=== PATIENT | male | born 1955 | race Caucasian/White ===

== ENCOUNTER → 2017-01-11 | Outpatient (CLI) | payer MEDICARE, OTHER ==
[2017-01-11 13:57] LABS: Blood Urea Nitrogen 14 mg/dL (9-20); Non-African American GFR(MDRD) >60 (>60 ml/min/1.73 sqM)
--- NOTE | 2017-01-11 16:07 | CT ---
EXAMINATION TYPE: CT ChestAbdPelvis w con DATE OF EXAM: 01/11/2017 COMPARISON: 08/23/2013 HISTORY: Abnormal US, previous pulmonary embolism. CT DLP: 2233.90 mGycm CONTRAST: CT scan of the chest, abdomen and pelvis is performed with Oral Contrast and with IV Contrast, patien t injected with 100 mL of Omnipaque 300. CT Chest: LUNGS: The lungs are clear and free of infiltrate or atelectasis. No pulmonary nodule or mass is det ected. No pleural effusion or CT evidence of interstitial lung disease. MEDIASTINUM: Thoracic aorta is of normal caliber. The heart is not enlarged. No evidence for media stinal mass or adenopathy. HILAR STRUCTURES: No evidence for mass. No hilar adenopathy is appreciated. OTHER: No significant abnormality. CONTRAST CT ABDOMEN AND PELVIS FINDINGS: LIVER/GB: The gallbladder surgically absent. No space occupying hepatic lesion. Biliary tree is of no rmal caliber. PANCREAS: No inflammation. No distinct mass. SPLEEN: No splenic enlargement. No lesion seen. ADRENALS: No nodule. No thickening. KIDNEYS/BLADDER: No hydronephrosis. No nephrolithiasis. No disctinct renal mass. BOWEL: Gastric wall thickening. Correlate clinically and consider direct visualization if felt to be indicated. Normal appendix visualized. Normal bowel caliber. No inflammation. GENITAL ORGANS: No gross abnormality. LYMPH NODES: No greater than 1cm abdominal or pelvic lymph nodes are appreciated. AORTA: No significant abnormality. OSSEOUS STRUCTURES: Severe degenerative change throughout the spine. OTHER: Fat-containing right ingu inal hernia. IMPRESSION: 1. Gastric wall thickening. Correlate clinically and consider direct visualization if felt to be archie cated. 2. Fat-containing right inguinal hernia.
== END | disposition home or self-care (01) ==
LOC: RADCTMAIN 13:30
PROVIDERS: ATTEND Family Medicine
DX: K40.90 Unilateral inguinal hernia, without obstruction or gangrene, not specified as recurrent (principal); K31.89 Other diseases of stomach and duodenum; I26.99 Other pulmonary embolism without acute cor pulmonale
CPT/HCPCS: 82565; 84520; 71260; 74177; 36415; Q9967

== ENCOUNTER 2017-02-22 10:50 | Day surgery (SDC) | payer MEDICARE, OTHER ==
[2017-02-20 12:47] VITALS: BMI 31.1
[~2017-02-22 10:50] MED LIST: DEXAMETHASONE SOD PHOSPHATE 10 MG/ML 1 ML VIAL IV ONE; HEPARIN SODIUM,PORCINE 5,000 UNIT/ML 1 ML VIAL SQ ONE; LIDOCAINE 1% 20 ML VIAL (10MG/ML) FOR IV START INTRADERMA PRN; MIDAZOLAM 2 MG/2 ML VIAL IV PRN; ONDANSETRON 4 MG/2 ML VIAL IVP ONE; SCOPOLAMINE 1.5MG/72HR PATCH TRANSDERM ONE; ceFAZolin IN SWFI 2 GM/20 ML SYRINGE IVP ONE
[2017-02-22] MEDS: LACTATED RINGERS 1,000 ML IV SCH ×3 (11:42→18:50)
[2017-02-22 11:48] LABS: Glucose,Whole Blood 85 mg/dL (75-99)
--- NOTE | 2017-02-22 14:12 | P.GSHP ---
History of Present Illness H&P Date: 02/22/17 Chief Complaint: Right inguinal hernia This's is a 61-year-old male presents today for laparoscopic robotic-assisted repair of right inguinal hernia. Patient's complaints of a tender mass in his right groin. He is seen Rex found have a reducible right inguinal hernia. Past Medical History Past Medical History: Diabetes Mellitus, Deep Vein Thrombosis (DVT), Hyperlipidemia, Hypertension, Osteoarthritis (OA), Pulmonary Embolus (PE), Sleep Apnea/CPAP/BIPAP Additional Past Medical History / Comment(s): blood clots 4 in the past for the past 4 years. Pulmonary emboli in July 2009, one foot turns in-occasional falls, unable to read or write-does sign own consents History of Any Multi-Drug Resistant Organisms: None Reported Past Surgical History: Cholecystectomy, Heart Catheterization Additional Past Surgical History / Comment(s): recent EGD 02-14-17 Past Anesthesia/Blood Transfusion Reactions: No Reported Reaction Additional Past Anesthesia/Blood Transfusion Reaction / Comment(s): HAD A BLOOD TRANSFUSION Smoking Status: Current every day smoker - Past Family History Father Family Medical History: Cancer Mother Family Medical History: Cancer Additional Family Medical History / Comment(s): colon Brother(s) Family Medical History: Cancer Additional Family Medical History / Comment(s): colon Medications and Allergies Home Medications Medication Instructions Recorded Confirmed Type Albuterol Sulfate [Proair Hfa] 2 puff INHALATION QID PRN 08/20/13 02/22/17 History Ipratropium/Albuterol Sulfate 1 dose INHALATION DIRECTED PRN 08/20/13 History [Duoneb 0.5 mg-3 mg/3 ml Soln] Omeprazole [PriLOSEC] 20 mg PO HS 08/20/13 02/22/17 History Potassium Chloride [Klor-Con 10] 20 meq PO DAILY 08/20/13 02/22/17 History Simvastatin 40 mg PO HS 08/20/13 02/22/17 History metFORMIN HCL [Glucophage] 500 mg PO BID 08/20/13 02/22/17 History Losartan Potassium [Cozaar] 50 mg PO HS 09/09/13 02/22/17 History DULoxetine HCL [Cymbalta] 60 mg PO DAILY 03/31/15 02/22/17 History Furosemide [Lasix] 40 mg PO DAILY 03/31/15 02/22/17 History Rivaroxaban [Xarelto] 20 mg PO DAILY 02/13/17 02/20/17 History Allergies Allergy/AdvReac Type Severity Reaction Status Date / Time codeine AdvReac Unknown Verified 02/20/17 12:11 Surgical - Exam Vital Signs Temp Pulse Resp BP Pulse Ox 97.7 F 74 18 121/61 95 02/22/17 11:41 02/22/17 11:41 02/22/17 11:41 02/22/17 11:41 02/22/17 11:41 - General well developed, no distress - Eyes PERRL - ENT normal pinna - Neck no masses - Respiratory normal expansion - Cardiovascular Rhythm: regular - Abdomen Abdomen: soft, non tender Hernia: inguinal (Reducible right inguinal hernia) Assessment and Plan Assessment: Right inguinal hernia. We'll perform laparoscopic robotic assistance repair.
[2017-02-22] MEDS ORDERED: fentaNYL (PF) 50 MCG/ML 2 ML AMP ONE (14:28)
[2017-02-22] MEDS ORDERED: PROPOFOL 10 MG/ML 20 ML VIAL IV ONE (14:28)
[2017-02-22] MEDS ORDERED: GLYCOPYRROLATE 0.2 MG/ML 2 ML VIAL ONE (14:28)
[2017-02-22] MEDS ORDERED: SUCCINYLCHOLINE CHLORIDE VIAL 200 MG/10 ML VIAL IV ONE (14:28)
[2017-02-22] MEDS ORDERED: LIDOCAINE 1% INJ 10MG/ML (20 ML MDV) ONE (14:28)
[2017-02-22] MEDS ORDERED: NEOSTIGMINE 1 MG/ML 10 ML VIAL ONE (14:28)
[2017-02-22] MEDS ORDERED: ROCURONIUM BROMIDE 10 MG/ML 10 ML VIAL IV ONE (14:28)
[2017-02-22] MEDS ORDERED: MIDAZOLAM 2 MG/2 ML VIAL ONE (14:28)
[2017-02-22] MEDS ORDERED: BUPIVACAINE (PF) 0.25% 30 ML VIAL SQ ONE (14:54)
[2017-02-22 15:49] VITALS: TEMP 97.1
[2017-02-22] MEDS: HYDROmorphone 0.5 MG/0.5 ML SYRINGE IVP PRN ×2 (15:54→15:57)
[2017-02-22 16:48] VITALS: RESP 20
[2017-02-22 16:54] LABS: Glucose,Whole Blood 107 mg/dL (75-99)
[2017-02-22] MEDS ORDERED: ONDANSETRON 4 MG/2 ML VIAL IVP ONE (18:01)
--- NOTE | 2017-02-22 18:41 | P.OP ---
Date of Procedure: 02/22/17 Preoperative Diagnosis: Right inguinal hernia Postoperative Diagnosis: Right inguinal hernia Procedure(s) Performed: Laparoscopic robotic-assisted repair of right inguinal hernia Anesthesia: NOY Surgeon: Giovanni Truong Estimated Blood Loss (ml): 5 Pathology: none sent Condition: stable Disposition: PACU Description of Procedure: he patient's placed on the operating table in the supine position. The patient received general anesthesia. The patient's abdomen was prepped and draped in usual sterile fashion. The skin was anesthetized 1% local Xylocaine at the incision sites. Using an 11 blade a skin incision was made at the umbilicus. The fascia was grasped with a [place] and then the peritoneal cavity was entered with the Veress needle. Position of the Veress needle was confirmed with a positive drop test. After adequate insufflation a 5 mm trocar was placed into the peritoneal cavity. The Laparoscope was placed the peritoneal cavity. And a robotic 8 mm trocar was placed in the right lateral position and then another 8 mm robotic trochars placed in the left lateral position. The original 5 mm trocar was exchanged for a 12 mm trocar. The patient was placed in reverse Trendelenburg and then the patient was docked to the robot. Next the peritoneum over top of the hernia was incised and then using blunt and sharp dissection and electrocautery the hernia sac was dissected free from the floor of the inguinal canal. The hernia sac was completely reduced into the peritoneal cavity. And then using the Pro electrical controls technician mesh the hernia was repaired. The peritoneum was then sutured with 20V lock suture. The patient was then undocked the robot. The needle was withdrawn from the peritoneal cavity. The umbilical trocar site was closed with 0 Ethibond suture. The skin was closed interrupted 3-0 Monocryl suture. Dermabond dressing was applied. Patient was sent to recovery in stable condition.
[2017-02-22 19:18] VITALS: BP 147/66; PULSE 92
== END 2017-02-22 18:51 | disposition home or self-care (01) ==
LOC: OR 10:50
PROVIDERS: ATTEND Surgery
DX: K40.90 Unilateral inguinal hernia, without obstruction or gangrene, not specified as recurrent (principal); E11.9 Type 2 diabetes mellitus without complications; E78.5 Hyperlipidemia, unspecified; I10 Essential (primary) hypertension; M19.90 Unspecified osteoarthritis, unspecified site; J44.9 Chronic obstructive pulmonary disease, unspecified; K21.9 Gastro-esophageal reflux disease without esophagitis; G47.30 Sleep apnea, unspecified; F17.200 Nicotine dependence, unspecified, uncomplicated; Z88.5 Allergy status to narcotic agent; Z79.84 Long term (current) use of oral hypoglycemic drugs; Z79.01 Long term (current) use of anticoagulants; Z79.899 Other long term (current) drug therapy; Z86.711 Personal history of pulmonary embolism; Z86.718 Personal history of other venous thrombosis and embolism; Z99.89 Dependence on other enabling machines and devices
CPT/HCPCS: 49650; C1781; J2250; J0330; J1644; J1100; J2710; J0690; J2405; J2001; J3010; J2704; J1170

== ENCOUNTER → 2017-07-10 | Outpatient (CLI) | payer MEDICARE, OTHER ==
--- NOTE | 2017-07-10 15:17 | US ---
EXAMINATION TYPE: US venous doppler duplex LE LT DATE OF EXAM: 07/10/2017 2:47 PM COMPARISON: US bilateral August 12, 2015 CLINICAL HISTORY: I82.402 Acute Embolism And Thrombosis. SIDE PERFORMED: Left TECHNIQUE: The lower extremity deep venous system is examined utilizing real time linear array sonog frandy with graded compression, doppler sonography and color-flow sonography. VESSELS IMAGED: External Iliac Vein (EIV) Common Femoral Vein Deep Femoral Vein Greater Saphenous Vein * Femoral Vein Popliteal Vein Small Saphenous Vein * Proximal Calf Veins (* superficial vessels) Left Leg: No evidence of DVT Grayscale, color doppler, spectral doppler imaging performed of the deep veins of the left lower extr emity. There is normal flow, compressibility, vascular waveforms. IMPRESSION: No ultrasound evidence for acute DVT in the left lower extremity currently.
== END | disposition home or self-care (01) ==
LOC: RADUSWWP 13:54
PROVIDERS: ATTEND Family Medicine
DX: I82.402 Acute embolism and thrombosis of unspecified deep veins of left lower extremity (principal)

== ENCOUNTER 2017-11-09 08:13 | Day surgery (SDC) | payer MEDICARE, OTHER ==
[2017-11-02 14:18] VITALS: BMI 33.9
[~2017-11-09 08:13] MED LIST changes: +LACTATED RINGERS 1,000 ML IV SCH; -LIDOCAINE 1% 20 ML VIAL (10MG/ML) FOR IV START INTRADERMA PRN; +Pre Op ABX Message 1 EACH MISC MISCELLANE ONE; -ceFAZolin IN SWFI 2 GM/20 ML SYRINGE IVP ONE; +fentaNYL (PF) 50 MCG/ML 2 ML AMP IV PRN
[2017-11-09 09:38] LABS: Glucose,Whole Blood 90 mg/dL (75-99)
--- NOTE | 2017-11-09 09:55 | P.GSHP ---
History of Present Illness H&P Date: 11/09/17 Chief Complaint: Posterior scalp lesion The cystic to 2-year-old male who presents today for excision of a posterior scalp cyst. Patient has developed increasing size of the scalp cyst. He currently measures approximately 3 cm diameter. Past Medical History Past Medical History: Diabetes Mellitus, Deep Vein Thrombosis (DVT), Hyperlipidemia, Hypertension, Osteoarthritis (OA), Pulmonary Embolus (PE), Sleep Apnea/CPAP/BIPAP Additional Past Medical History / Comment(s): BLOOD CLOTS X4LRL; PE 2009 ;. ONE FOOT TURNS IN - HX OF OCCASIONAL FALLS- USES CANE ., UNABLE TO READ OR WRITE., COLOR BLIND., LIVES ALONE, ABLE TO SIGN OWN CONSENTS PER FAMILY. History of Any Multi-Drug Resistant Organisms: None Reported Past Surgical History: Cholecystectomy, Heart Catheterization Additional Past Surgical History / Comment(s): HEART CATH 2008. Past Anesthesia/Blood Transfusion Reactions: No Reported Reaction, Motion Sickness Additional Past Anesthesia/Blood Transfusion Reaction / Comment(s): HAD A BLOOD TRANSFUSION Smoking Status: Current every day smoker - Past Family History Father Family Medical History: Cancer Mother Family Medical History: Cancer Additional Family Medical History / Comment(s): colon Brother(s) Family Medical History: Cancer Additional Family Medical History / Comment(s): colon Medications and Allergies Home Medications Medication Instructions Recorded Confirmed Type Albuterol Sulfate [Proair Hfa] 2 puff INHALATION QID PRN 08/20/13 11/09/17 History Ipratropium/Albuterol Sulfate 1 dose INHALATION DIRECTED PRN 08/20/13 History [Duoneb 0.5 mg-3 mg/3 ml Soln] Omeprazole [PriLOSEC] 20 mg PO HS 08/20/13 11/09/17 History Potassium Chloride [Klor-Con 10] 20 meq PO DAILY 08/20/13 11/09/17 History Simvastatin 40 mg PO HS 08/20/13 11/09/17 History metFORMIN HCL [Glucophage] 500 mg PO BID 08/20/13 11/09/17 History Losartan Potassium [Cozaar] 50 mg PO HS 09/09/13 11/09/17 History DULoxetine HCL [Cymbalta] 60 mg PO DAILY 03/31/15 11/09/17 History Furosemide [Lasix] 40 mg PO DAILY 03/31/15 11/09/17 History Rivaroxaban [Xarelto] 20 mg PO DAILY 02/13/17 11/09/17 History Docusate [Colace] 100 mg PO BID PRN 11/02/17 11/09/17 History Allergies Allergy/AdvReac Type Severity Reaction Status Date / Time codeine Allergy Dyspnea Verified 11/09/17 09:25 Surgical - Exam Vital Signs Temp Pulse Resp BP Pulse Ox 97.3 F L 84 18 109/67 95 11/09/17 09:24 11/09/17 09:24 11/09/17 09:24 11/09/17 09:24 11/09/17 09:24 - General well developed, no distress - Eyes PERRL - ENT normal pinna - Neck no masses - Respiratory normal expansion - Cardiovascular Rhythm: regular - Abdomen Abdomen: soft, non tender - Integumentary Posterior scalp cyst. We'll perform excision.
[2017-11-09] MEDS ORDERED: MIDAZOLAM 2 MG/2 ML VIAL ONE (10:22)
[2017-11-09] MEDS ORDERED: fentaNYL (PF) 50 MCG/ML 2 ML AMP ONE (10:22)
[2017-11-09] MEDS ORDERED: PROPOFOL 10 MG/ML 20 ML VIAL IV ONE (10:22)
[2017-11-09] MEDS ORDERED: LIDOCAINE 1% INJ 10MG/ML (20 ML MDV) ONE (10:22)
[2017-11-09] MEDS ORDERED: BUPIVACAIN-EPI 0.25%-1:200,000 30 ML VIAL SQ ONE ×2 (10:35)
[2017-11-09] MEDS ORDERED: SODIUM CHLORIDE 0.9% 50 ML with ceFAZolin 2,000 MG IV ONE ×2 (10:36)
--- NOTE | 2017-11-09 11:07 | P.OP ---
Date of Procedure: 11/09/17 Preoperative Diagnosis: Posterior neck cyst Postoperative Diagnosis: Posterior neck lipoma Procedure(s) Performed: Excision of posterior neck cyst Anesthesia: MAC Surgeon: Giovanni Truong Estimated Blood Loss (ml): 4 Pathology: other (Posterior neck cyst) Condition: stable Disposition: PACU Description of Procedure: Patient's placed on the operating table in the lateral position. He received IV sedation. His neck was prepped and draped in the usual sterile fashion. The skin was anesthetized with 1% local Xylocaine. A elliptical skin incision was made around the neck cyst. Using left cautery and sharp dissection the mass was excised. The mass measured approximately 2 cm in diameter. The Bovie hemostasis. The skin was closed interrupted 3-0 Monocryl suture. Dermabond was applied. Patient top she will was sent to recovery room stable condition.
[2017-11-09 11:11] VITALS: TEMP 97
[2017-11-09 11:16] LABS: Glucose,Whole Blood 103 mg/dL (75-99)
[2017-11-09 11:17] VITALS: RESP 16
[2017-11-09 12:07] VITALS: BP 109/69; PULSE 82
== END 2017-11-09 12:25 | disposition home or self-care (01) ==
LOC: OR 08:13
PROVIDERS: ATTEND Surgery
DX: L72.12 Trichodermal cyst (principal); E11.9 Type 2 diabetes mellitus without complications; Z86.718 Personal history of other venous thrombosis and embolism; E78.5 Hyperlipidemia, unspecified; I10 Essential (primary) hypertension; M19.90 Unspecified osteoarthritis, unspecified site; Z86.711 Personal history of pulmonary embolism; G47.30 Sleep apnea, unspecified; Z99.89 Dependence on other enabling machines and devices; F17.200 Nicotine dependence, unspecified, uncomplicated; Z79.01 Long term (current) use of anticoagulants; Z79.84 Long term (current) use of oral hypoglycemic drugs; Z79.899 Other long term (current) drug therapy; Z88.5 Allergy status to narcotic agent
CPT/HCPCS: 88305; 11422; J2250; J1644; J1100; J2405; J2001; J3010; J0690; J2704

== ENCOUNTER 2017-12-13 07:17 | Day surgery (SDC) | payer MEDICARE, OTHER ==
[2017-12-11 09:18] VITALS: BMI 33.9
[~2017-12-13 07:17] MED LIST changes: -DEXAMETHASONE SOD PHOSPHATE 10 MG/ML 1 ML VIAL IV ONE; -MIDAZOLAM 2 MG/2 ML VIAL IV PRN; -ONDANSETRON 4 MG/2 ML VIAL IVP ONE; -SCOPOLAMINE 1.5MG/72HR PATCH TRANSDERM ONE; -fentaNYL (PF) 50 MCG/ML 2 ML AMP IV PRN
[2017-12-13 08:22] LABS: Glucose,Whole Blood 99 mg/dL (75-99)
--- NOTE | 2017-12-13 08:59 | P.GSHP ---
History of Present Illness H&P Date: 12/13/17 Chief Complaint: Atypical skin lesion This is a 62-year-old male who underwent excision of a posterior scalp skin cyst. Patient found have atypia on the pathology report. Patient safe for reexcision of the lesion. Past Medical History Past Medical History: Diabetes Mellitus, Deep Vein Thrombosis (DVT), Hyperlipidemia, Hypertension, Osteoarthritis (OA), Pulmonary Embolus (PE), Sleep Apnea/CPAP/BIPAP Additional Past Medical History / Comment(s): BLOOD CLOTS X4LRL; PE 2009 ;. ONE FOOT TURNS IN - HX OF OCCASIONAL FALLS- USES CANE ., UNABLE TO READ OR WRITE., COLOR BLIND., LIVES ALONE, ABLE TO SIGN OWN CONSENTS PER FAMILY. History of Any Multi-Drug Resistant Organisms: None Reported Past Surgical History: Cholecystectomy, Heart Catheterization Additional Past Surgical History / Comment(s): HEART CATH 2008. SKIN LESION REMOVED FROM SCALP Past Anesthesia/Blood Transfusion Reactions: No Reported Reaction, Motion Sickness Additional Past Anesthesia/Blood Transfusion Reaction / Comment(s): HAD A BLOOD TRANSFUSION Past Psychological History: No Psychological Hx Reported Additional Psychological History / Comment(s): hard time reading Smoking Status: Current every day smoker Past Alcohol Use History: None Reported Additional Past Alcohol Use History / Comment(s): started smoking age 21's, smokes less than 1/2 PPD Past Drug Use History: None Reported - Past Family History Father Family Medical History: Cancer Mother Family Medical History: Cancer Additional Family Medical History / Comment(s): colon Brother(s) Family Medical History: Cancer Additional Family Medical History / Comment(s): colon Medications and Allergies Home Medications Medication Instructions Recorded Confirmed Type Albuterol Sulfate [Proair Hfa] 2 puff INHALATION QID PRN 08/20/13 12/13/17 History Ipratropium/Albuterol Sulfate 1 dose INHALATION DIRECTED PRN 08/20/13 History [Duoneb 0.5 mg-3 mg/3 ml Soln] Omeprazole [PriLOSEC] 20 mg PO HS 08/20/13 12/13/17 History Potassium Chloride [Klor-Con 10] 20 meq PO DAILY 08/20/13 12/13/17 History Simvastatin 40 mg PO HS 08/20/13 12/13/17 History metFORMIN HCL [Glucophage] 500 mg PO BID 08/20/13 12/13/17 History Losartan Potassium [Cozaar] 50 mg PO HS 09/09/13 12/13/17 History DULoxetine HCL [Cymbalta] 60 mg PO DAILY 03/31/15 12/13/17 History Furosemide [Lasix] 40 mg PO DAILY 03/31/15 12/13/17 History Rivaroxaban [Xarelto] 20 mg PO DAILY 02/13/17 12/11/17 History Docusate [Colace] 100 mg PO BID PRN 11/02/17 12/11/17 History Allergies Allergy/AdvReac Type Severity Reaction Status Date / Time codeine Allergy Dyspnea Verified 12/13/17 08:08 Surgical - Exam Vital Signs Temp Pulse Resp BP Pulse Ox 97.8 F 88 17 133/63 93 L 12/13/17 08:15 12/13/17 08:15 12/13/17 08:15 12/13/17 08:15 12/13/17 08:15 - General well developed, no distress - Eyes PERRL - ENT normal pinna - Neck no masses - Respiratory normal expansion - Cardiovascular Rhythm: regular - Abdomen Abdomen: soft, non tender - Integumentary Healed skin excision site measuring centimeters length. Assessment and Plan Assessment: History of excision of skin cyst. Patient has atypia noted on pathology. Patient will undergo reexcision of the skin cyst.
[2017-12-13] MEDS ORDERED: PROPOFOL 10 MG/ML 20 ML VIAL IV ONE (09:16)
[2017-12-13] MEDS ORDERED: KETAMINE 10 MG/ML 20 ML VIAL ONE (09:16)
[2017-12-13] MEDS ORDERED: fentaNYL (PF) 50 MCG/ML 2 ML AMP ONE (09:16)
[2017-12-13] MEDS ORDERED: MIDAZOLAM 2 MG/2 ML VIAL ONE (09:16)
[2017-12-13] MEDS ORDERED: BUPIVACAIN-EPI 0.5%-1:200,000 30 ML VIAL SQ ONE ×2 (09:38)
[2017-12-13 10:15] VITALS: TEMP 97.2
[2017-12-13] MEDS: MORPHINE SULFATE 4 MG/ML SYRINGE IV PRN ×2 (10:15→10:46)
[2017-12-13 10:52] VITALS: RESP 18
[2017-12-13 10:57] LABS: Glucose,Whole Blood 101 mg/dL (75-99)
[2017-12-13 11:47] VITALS: BP 146/79; PULSE 85
--- NOTE | 2018-01-05 09:54 | P.OP ---
Date of Procedure: 12/13/17 Preoperative Diagnosis: Posterior scalp atypical skin lesion Postoperative Diagnosis: Posterior scalp atypical skin lesion Procedure(s) Performed: Excision of posterior scalp atypical skin lesion Anesthesia: MAC Surgeon: Giovanni Truong Estimated Blood Loss (ml): 10 Pathology: other (Posterior scalp skin lesion) Condition: stable Description of Procedure: Patient's placed on the operative table in the lateral position. He received IV sedation. The area of the skin lesion was visualized. Elliptical skin incision was made around his previous scar. Using electrocautery the specimen was removed. The lesion measured 4 x 1 cm. The wound was closed with interrupted 3-0 Monocryl suture. Dermabond was applied. Patient top she will was sent to recovery room stable condition.
== END 2017-12-13 12:11 | disposition home or self-care (01) ==
LOC: OR 07:17
PROVIDERS: ATTEND Surgery
DX: L90.5 Scar conditions and fibrosis of skin (principal); E11.9 Type 2 diabetes mellitus without complications; Z86.718 Personal history of other venous thrombosis and embolism; E78.5 Hyperlipidemia, unspecified; I10 Essential (primary) hypertension; K21.9 Gastro-esophageal reflux disease without esophagitis; M19.90 Unspecified osteoarthritis, unspecified site; Z86.711 Personal history of pulmonary embolism; J45.909 Unspecified asthma, uncomplicated; G47.30 Sleep apnea, unspecified; Z99.89 Dependence on other enabling machines and devices; F17.210 Nicotine dependence, cigarettes, uncomplicated; Z79.01 Long term (current) use of anticoagulants; Z79.84 Long term (current) use of oral hypoglycemic drugs; Z79.899 Other long term (current) drug therapy; Z88.5 Allergy status to narcotic agent
CPT/HCPCS: 88305; 11426; J2250; J2270; J1644; J3010; J2704

== ENCOUNTER 2017-12-27 06:23 | Day surgery (SDC) | payer MEDICARE, OTHER ==
[2017-12-26 09:36] VITALS: BMI 35.9
[~2017-12-27 06:23] MED LIST changes: -HEPARIN SODIUM,PORCINE 5,000 UNIT/ML 1 ML VIAL SQ ONE; +LIDOCAINE 1% 20 ML VIAL (10MG/ML) FOR IV START INTRADERMA PRN; -Pre Op ABX Message 1 EACH MISC MISCELLANE ONE
[2017-12-27 07:16] VITALS: TEMP 97.8
[2017-12-27 07:28] LABS: Glucose,Whole Blood 123 mg/dL (75-99)
[2017-12-27] MEDS ORDERED: PROPOFOL 10 MG/ML 20 ML VIAL IV ONE (07:47)
[2017-12-27] MEDS ORDERED: LIDOCAINE 1% INJ 10MG/ML (20 ML MDV) ONE (07:47)
--- NOTE | 2017-12-27 08:05 | P.GSHP ---
History of Present Illness H&P Date: 12/27/17 Chief Complaint: GI bleed this a 62-year-old male referred from Dr. virgen. Patient points of rectal bleeding. He presents today for colonoscopy. Past Medical History Past Medical History: Diabetes Mellitus, Deep Vein Thrombosis (DVT), Hyperlipidemia, Hypertension, Osteoarthritis (OA), Pulmonary Embolus (PE), Sleep Apnea/CPAP/BIPAP Additional Past Medical History / Comment(s): BLOOD CLOTS X4LRL; PE 2009 ;. ONE FOOT TURNS IN - HX OF OCCASIONAL FALLS- USES CANE ., UNABLE TO READ OR WRITE., COLOR BLIND., LIVES ALONE, ABLE TO SIGN OWN CONSENTS PER FAMILY. History of Any Multi-Drug Resistant Organisms: None Reported Past Surgical History: Cholecystectomy, Heart Catheterization Additional Past Surgical History / Comment(s): HEART CATH 2008. SKIN LESION REMOVED FROM SCALP Past Anesthesia/Blood Transfusion Reactions: No Reported Reaction, Motion Sickness Additional Past Anesthesia/Blood Transfusion Reaction / Comment(s): HAD A BLOOD TRANSFUSION-NO PROBLEMS Smoking Status: Current every day smoker - Past Family History Father Family Medical History: Cancer Mother Family Medical History: Cancer Additional Family Medical History / Comment(s): colon Brother(s) Family Medical History: Cancer Additional Family Medical History / Comment(s): colon Medications and Allergies Home Medications Medication Instructions Recorded Confirmed Type Albuterol Sulfate [Proair Hfa] 2 puff INHALATION QID PRN 08/20/13 12/26/17 History Ipratropium/Albuterol Sulfate 1 dose INHALATION DIRECTED PRN 08/20/13 History [Duoneb 0.5 mg-3 mg/3 ml Soln] Omeprazole [PriLOSEC] 20 mg PO HS 08/20/13 12/27/17 History Potassium Chloride [Klor-Con 10] 20 meq PO DAILY 08/20/13 12/27/17 History Simvastatin 40 mg PO HS 08/20/13 12/27/17 History metFORMIN HCL [Glucophage] 500 mg PO BID 08/20/13 12/27/17 History Losartan Potassium [Cozaar] 50 mg PO HS 09/09/13 12/27/17 History DULoxetine HCL [Cymbalta] 60 mg PO DAILY 03/31/15 12/27/17 History Furosemide [Lasix] 40 mg PO DAILY 03/31/15 12/27/17 History Rivaroxaban [Xarelto] 20 mg PO DAILY 02/13/17 12/26/17 History Docusate [Colace] 100 mg PO BID PRN 11/02/17 12/26/17 History Allergies Allergy/AdvReac Type Severity Reaction Status Date / Time codeine Allergy Dyspnea Verified 12/27/17 07:14 Surgical - Exam Vital Signs Temp Pulse Resp BP Pulse Ox 97.8 F 88 17 125/64 95 12/27/17 07:15 12/27/17 07:15 12/27/17 07:15 12/27/17 07:15 12/27/17 07:15 - General well developed, no distress - Eyes PERRL - ENT normal pinna - Neck no masses - Respiratory normal expansion - Cardiovascular Rhythm: regular - Abdomen Abdomen: soft, non tender - Rectum Rectum: normal sphincter tone - Integumentary no rash Results - Labs Abnormal Lab Results - Last 24 Hours (Table) 12/27/17 Range/Units 07:24 POC Glucose (mg/dL) 123 H (75-99) mg/dL Assessment and Plan Assessment: GI bleed
--- NOTE | 2017-12-27 08:21 | P.OP ---
Date of Procedure: 12/27/17 Preoperative Diagnosis: GI bleed Postoperative Diagnosis: diverticulosis Transverse colon polyp Procedure(s) Performed: colonoscopy Anesthesia: MAC Surgeon: Giovanni Truong Pathology: other Condition: stable Disposition: PACU Description of Procedure: the patient's placed on the operative table ilateral position. He received IV sedation. Digital rectal exam was performed which revealed no abnormalities. Flexible colonoscope was then placed patient anus passed rotator colon. The ileocecal valve was visualized. The cecum and ascending colon appeared normal. In the proximal transverse colon there was a peduncular polyp and this was removed snare. Scope was brought back into the descending colon diverticular changes. The sigmoid colon had more diverticula changes. Scope was then brought back the rectum this appeared normal. The patient had no obvious source of bleeding. It was thought that he may have had bleeding from the polyp or the diverticulum.
[2017-12-27 08:24] VITALS: BP 122/74
[2017-12-27 08:31] VITALS: PULSE 86; RESP 16
== END 2017-12-27 08:51 | disposition home or self-care (01) ==
LOC: ORWHC2ENDO 06:23
PROVIDERS: ATTEND Surgery
DX: K92.2 Gastrointestinal hemorrhage, unspecified (principal); D12.3 Benign neoplasm of transverse colon; K57.30 Diverticulosis of large intestine without perforation or abscess without bleeding; E11.9 Type 2 diabetes mellitus without complications; I10 Essential (primary) hypertension; E78.5 Hyperlipidemia, unspecified; M19.90 Unspecified osteoarthritis, unspecified site; G47.30 Sleep apnea, unspecified; F17.210 Nicotine dependence, cigarettes, uncomplicated; G47.33 Obstructive sleep apnea (adult) (pediatric); Z99.89 Dependence on other enabling machines and devices; Z86.711 Personal history of pulmonary embolism; Z86.718 Personal history of other venous thrombosis and embolism; Z91.81 History of falling; Z79.01 Long term (current) use of anticoagulants; Z79.84 Long term (current) use of oral hypoglycemic drugs; Z79.899 Other long term (current) drug therapy; Z88.5 Allergy status to narcotic agent; Z90.49 Acquired absence of other specified parts of digestive tract
CPT/HCPCS: 88305; 45385; J2001; J2704

== ENCOUNTER → 2018-02-12 | Outpatient (CLI) | payer MEDICARE, OTHER ==
--- NOTE | 2018-02-12 15:48 | MR ---
MR left foot HISTORY: Left foot pain, deformity, Q66.9, M 19.072 Multiplanar multisequence imaging obtained through the left foot. Correlation to prior left foot MR 11/05/2015, no plain film supplied for correlation If patient shows unusual configuration, alignment on the images similar to prior exam. T2 hyperintensity within the subcutaneous tissues is compatible with edema. Some fluid signal again n oted along the flexor tendons at the volar aspect of the foot similar to prior exam. No evident bone marrow edema within the forefoot however marrow edema present within the calcaneus with possible geod e formation at the level of the sinus Tarsi could represent geode formation which is progressed sligh tly in the interval. Arthropathy change also present at the level of the calcaneal cuboid joint with subchondral cyst formation, joint space loss, marginal spurring. Small geode present also at the cubo id articulation with the proximal fourth metatarsal with some spurring. Some fluid present at the metatarsophalangeal joint of the first digit and also third fourth and fift h digits. Flexor and extensor tendons are intact. Peroneal longus and brevis tendons are similar in a ppearance, peroneal longus tendon is atrophic as previously described. Achilles tendon is intact. Flu id signal again noted along the posterior tibial tendon as on prior. Some minimal interstitial tear a gain noted in the Achilles tendon peripherally. Ligamentous not well identified due to oblique orient ation on the images. Hindfoot and forefoot varus deformity again noted. No evident fracture or dislocation. Flexion of mul tiple digits is noted, correlate for trigger toe, arthropathy IMPRESSION: Findings appear similar to prior exam. Posterior tibial tendinosis. Partial-thickness atr ophic tear of peroneal longus tendon. Forefoot and hindfoot varus deformity. Osteoarthritic changes a s described. Soft tissue edema and possibly myositis. Minimal interstitial tearing of the Achilles te ndon is stable. Plantar calcaneal spur is stable. Additional findings above.
== END | disposition home or self-care (01) ==
LOC: RADMRIMAIN 12:09
PROVIDERS: ATTEND Family Medicine
DX: S86.312A Strain of muscle(s) and tendon(s) of peroneal muscle group at lower leg level, left leg, initial encounter (principal); S86.012A Strain of left Achilles tendon, initial encounter; M76.822 Posterior tibial tendinitis, left leg; M19.072 Primary osteoarthritis, left ankle and foot; M77.32 Calcaneal spur, left foot; M21.172 Varus deformity, not elsewhere classified, left ankle

== ENCOUNTER → 2018-05-29 | Outpatient (CLI) | payer MEDICARE, OTHER ==
[~2018-05-29] MED LIST changes: -LACTATED RINGERS 1,000 ML IV SCH; -LIDOCAINE 1% 20 ML VIAL (10MG/ML) FOR IV START INTRADERMA PRN; +REGADENOSON 0.4 MG/5 ML SYRINGE IV ONE
--- NOTE | 2018-05-29 09:14 | ECHOF ---
Referral Reason:I10 hypertention/E11.9 DM MEASUREMENTS -------- HEIGHT: 177.8 cm WEIGHT: 120.2 kg BP: IVSd: 1.1 cm (0.6 - 1.1) LVIDd: 4.5 cm (3.9 - 5.3) LVPWd: 1.0 cm (0.6 - 1.1) IVSs: 1.7 cm LVIDs: 2.9 cm LVPWs: 1.7 cm LA Diam: 1.1 cm (2.7 - 3.8) LAESV Index (A-L): 20.12 ml/m Ao Diam: 3.7 cm (2.0 - 3.7) AV Cusp: 2.2 cm (1.5 - 2.6) LA Diam: 3.6 cm (2.7 - 3.8) MV EXCURSION: 21.388 mm (> 18.000) MV EF SLOPE: 152 mm/s (70 - 150) EPSS: 2.4 cm MV E Andrea: 0.36 m/s MV DecT: 147 ms MV A Andrea: 0.82 m/s MV E/A Ratio: 0.44 RAP: 5.00 mmHg RVSP: 15.28 mmHg FINDINGS -------- Sinus rhythm. This was a technically good study. The left ventricular size is normal. Left ventricular wall thickness is normal. Overall left vent ricular systolic function is low-normal with, an EF between 50 - 55 %. The right ventricle is normal in size. Normal LA size by volume 22+/-6 ml/m2. The right atrial size is normal. The aortic valve is trileaflet and appears structurally normal. There is trace mitral regurgitation. Trace tricuspid regurgitation present. The right ventricular systolic pressure, as measured by Dopp ler, is 15.28mmHg. There is no pulmonic regurgitation present. The aortic root size is normal. IVC Not well visulized. There is no pericardial effusion. CONCLUSIONS -------- 1. Sinus rhythm. 2. This was a technically good study. 3. The left ventricular size is normal. 4. Left ventricular wall thickness is normal. 5. Overall left ventricular systolic function is low-normal with, an EF between 50 - 55 %. 6. The right ventricle is normal in size. 7. Normal LA size by volume 22+/-6 ml/m2. 8. The right atrial size is normal. 9. The aortic valve is trileaflet and appears structurally normal. 10. There is trace mitral regurgitation. 11. Trace tricuspid regurgitation present. 12. The right ventricular systolic pressure, as measured by Doppler, is 15.28mmHg. 13. There is no pulmonic regurgitation present. 14. The aortic root size is normal. 15. IVC Not well visulized. 16. There is no pericardial effusion. PRESS MANAGER: Vera Crane RDCS
--- NOTE | 2018-05-29 11:51 | NM ---
EXAMINATION TYPE: NM stress lexiscan cardiolite DATE OF EXAM: 05/29/2018 COMPARISON: NONE HISTORY: Hypertension and diabetes. Chest pain. TECHNIQUE: After the intravenous administration of 9.89 mCi Tc 99m Sestamibi - Cardiolite resting SP ECT images acquired 45 minutes post injection. The patient received 0.4mg Lexiscan, 26.9 mCi Tc 99m Sestamibi - Stress images obtained [address] injection FINDINGS: Review of stress and rest SPECT images demonstrates no distinct perfusion abnormality. Gated analysi s shows normal wall motion with an estimated left ventricular ejection fraction of 57 %. TID is withi n normal limits calculated at 1.08. IMPRESSION: No scintigraphic evidence for reversible ischemia.
--- NOTE | 2018-05-30 14:54 | EST ---
EXERCISE STRESS AGE: 62 SEX: M HT: 6' WT: 265 PROTOCOL: Lexiscan Cardiolite Stress Test HEART RATE REST: 76 BLOOD PRESSURE REST: 121/82 MAXIMUM HEART RATE ACHIEVED: 94 MAXIMUM BLOOD PRESSURE: 125/71 INDICATIONS: Hypertension. CLINICAL INFORMATION: Lexiscan nuclear study was performed. Peak heart rate of 94 was achieved. Maximum blood pressure of 125/71 mmHg was noted. Resting EKG shows normal sinus rhythm with normal WI interval and QRS duration and normal ST-T waves. No ST-segment depression suggestive of ischemia was noted. FINAL IMPRESSION: 1. There is no evidence of any ST-segment depression to suggest ischemia during Lexiscan injection. 2. The results of the nuclear study will follow. MMODL / IJN: [id number] /
== END | disposition home or self-care (01) ==
LOC: RADNMMAIN 08:00
PROVIDERS: ATTEND Family Medicine
DX: I35.9 Nonrheumatic aortic valve disorder, unspecified (principal); I10 Essential (primary) hypertension; E11.9 Type 2 diabetes mellitus without complications; I25.10 Atherosclerotic heart disease of native coronary artery without angina pectoris; Z88.5 Allergy status to narcotic agent
CPT/HCPCS: 93017; 93306; 78452; A9500; J2785

== ENCOUNTER → 2018-10-04 | Outpatient (CLI) | payer MEDICARE, OTHER ==
[2018-10-04 16:01] LABS: African American GFR (CKD) >90 (>60 ml/min/1.73 sqM); Blood Urea Nitrogen 18 mg/dL (9-20)
--- NOTE | 2018-10-05 07:25 | US ---
EXAMINATION TYPE: US venous doppler duplex LE DATE OF EXAM: 10/04/2018 4:26 PM COMPARISON: NONE CLINICAL HISTORY: I82.503 DVT. Hx of DVT patient on blood thinners. SIDE PERFORMED: Bilateral TECHNIQUE: The lower extremity deep venous system is examined utilizing real time linear array sonog frandy with graded compression, doppler sonography and color-flow sonography. VESSELS IMAGED: External Iliac Vein (EIV) Common Femoral Vein Deep Femoral Vein Greater Saphenous Vein * Femoral Vein Popliteal Vein Small Saphenous Vein * Proximal Calf Veins (* superficial vessels) Grayscale, color doppler, spectral doppler imaging performed of the deep veins of the lower extremiti es. There is normal flow, compressibility, vascular waveforms. Right Leg: Negative for DVT Left Leg: Thready flow seen in Femoral Vein. Hx of Chronic DVT left leg. IMPRESSION: 1. Nonocclusive, eccentric, chronic known deep venous thrombosis within the left lower extremity loca lized to the femoral vein. 2. No sonographic evidence of deep venous thrombosis within the right lower extremity.
--- NOTE | 2018-10-05 09:55 | CT ---
EXAMINATION TYPE: CT ChestAbdPelvis w con DATE OF EXAM: 10/04/2018 COMPARISON: Prior CT 01/11/2017 HISTORY: SOB, Hx of PE CT DLP: 2392.5 mGycm Automated exposure control for dose reduction was used. CONTRAST: CT scan of the chest, abdomen and pelvis is performed with Oral Contrast and with IV Contrast, patien t injected with 100 mL of Isovue 300. FINDINGS: LUNGS: The lungs are grossly clear, there is no concerning parenchymal mass or nodule identified. T here is no pleural effusion or pneumothorax seen. The tracheobronchial tree is patent. MEDIASTINUM: There are no greater than 1 cm hilar or mediastinal lymph nodes. No pericardial effusi on is seen. AORTA: No significant abnormality is seen. OTHER: Possible right inguinal hernia, correlate. Narrowed caliber of the iliac vein, common femoral vein on the left is indeterminate. LIVER/GB: Patient is post cholecystectomy. The liver shows low attenuation likely due to hepatic stea tosis. PANCREAS: No significant abnormality is seen. SPLEEN: No significant abnormality is seen. ADRENALS: No significant abnormality is seen. KIDNEYS: Left kidney shows an abnormality at the midpole with some central low attenuation which is i ncreased in size as compared to prior exam and there is suggestion of some local mass effect perhaps better seen on delayed imaging, difficult to exclude a mass measuring 2.4 cm. REPRODUCTIVE ORGANS: No gross abnormality seen. BOWEL: Diverticular changes are present associated with the sigmoid colon. No evident bowel obstruct ion. There is a duodenal diverticulum at the 2nd-3rd portion of the duodenum. The appendix is normal. FREE AIR: No Free Air visible. ASCITES: None seen. RETROPERITONEAL ADENOPATHY: No retroperitoneal adenopathy is seen. LYMPH NODES: No greater than 1 cm abdominal or pelvic lymph nodes are appreciated. URINARY BLADDER: No significant abnormality is seen. PELVIC ADENOPATHY: None visualized. OSSEOUS STRUCTURES: Degenerative disc changes, facet arthropathy noted in the lumbar spine, there is likely lumbar spinal stenosis. IMPRESSION: Abnormal appearance to the mid pole left kidney laterally, difficult to exclude an underl kael mass. Consider urology consult. Hepatic steatosis. Postop changes. Findings in the iliac and com mon femoral vein on the left as described are indeterminate. Diverticulosis.
== END | disposition home or self-care (01) ==
LOC: RADCTMAIN 15:22
PROVIDERS: ATTEND Family Medicine
DX: K76.0 Fatty (change of) liver, not elsewhere classified (principal); K57.30 Diverticulosis of large intestine without perforation or abscess without bleeding; R94.4 Abnormal results of kidney function studies; N40.0 Benign prostatic hyperplasia without lower urinary tract symptoms; Z90.49 Acquired absence of other specified parts of digestive tract; Z88.5 Allergy status to narcotic agent; Z88.8 Allergy status to other drugs, medicaments and biological substances; I82.512 Chronic embolism and thrombosis of left femoral vein
CPT/HCPCS: 82565; 84520; 93970; 71260; 74177; 36415; Q9967

== ENCOUNTER → 2018-10-30 | Outpatient (CLI) | payer MEDICARE, OTHER ==
--- NOTE | 2018-10-30 12:23 | US ---
EXAMINATION TYPE: US carotid duplex BILAT DATE OF EXAM: 10/30/2018 COMPARISON: NONE CLINICAL HISTORY: R42 Dizziness and giddine. HTN, diabetic, No hx TIA, Dizzy, headaches recently EXAM MEASUREMENTS: RIGHT: Peak Systolic Velocity (PSV) cm/sec ----- Right CCA: 81.4 ----- Right ICA: 65.8 ----- Right ECA: 74.6 ICA/CCA ratio: 0.8 RIGHT: End Diastole cm/sec ----- Right CCA: 15.4 ----- Right ICA: 28.5 ----- Right ECA: 0.0 LEFT: Peak Systolic Velocity (PSV) cm/sec ----- Left CCA: 75.4 ----- Left ICA: 66.2 ----- Left ECA: 99.5 ICA/CCA ratio: 0.9 LEFT: End Diastole cm/sec ----- Left CCA: 16.0 ----- Left ICA: 20.9 ----- Left ECA: 0.0 VERTEBRALS (direction of flow): Right Vertebral: Antegrade Left Vertebral: Antegrade Rhythm: Arrhythmia No elevated velocities, significant stenosis, plaque or wall thickening. IMPRESSION: 1. Mild degree of grayscale atheromatous plaquing with no sonographically evident hemodynamically sig nificant stenosis within either visualized carotid arterial system. 2. Incidentally noted cardiac arrhythmia. Correlate with EKG. Criteria for Assigning % of Stenosis / Diameter reduction (Estimation based on the indirect measurements of the internal carotid artery velocities (ICA PSV). 1. Normal (no stenosis)=ICA PSV < 125 cm/s: ratio < 2.0: ICA EDV<40 cm/s. 2. Less than 50% stenosis=ICA PSV < 125 cm/s: ratio < 2.0: ICA EDV<40 cm/s. 3. 50 to 69% stenosis=ICA PSV of 125 to 230 cm/s: ration 2.0 ? 4.0: ICA EDV 40-100 cm/s. 4. Greater than 70% stenosis to near occlusion= ICA PSV > 230 cm/s: ratio > 4.0: ICA EDV > 100 cm/s. 5. Near occlusion= ICA PSV velocities may be low or undetectable: variable ratio and ICA EDV. 6. Total occlusion=unable to detect flow.
--- NOTE | 2018-10-30 13:32 | BD ---
EXAMINATION TYPE: Axial Bone Density DATE OF EXAM: 10/30/2018 COMPARISON: NONE CLINICAL HISTORY: 63 YR OLD MALE....ICD-10 CODE: M89.9 DISORDER OF BONE Height: 71 Weight: 265 FRAX RISK QUESTIONS: Glucocorticoids (More than 3mos): YES (Ex: prednisone, prednisolone, methylprednisolone, dexamethasone, and hydrocortisone). Current Tobacco Use: YES RISK FACTORS HISTORY OF: NO FXS AT OR OVER 50 YRS OLD Active: NO FALL RISK, IN WHEELCHAIR Lost more than 2 inches in height since high school: YES Frequent falls: YES, UNSTEADY, FALL RISK MEDICATIONS: Prednisone or other steroids: STEROIDAL INHALER FOR LUNGS, COPD FOR YRS Additional Medications: BP MEDS, NSAIDS, PAIN MEDS, DIABETIC MEDS, REFLUX MEDS, STATIN FOR CHOLESTERO L, Additional History: DIABETIC, OSTEOARTHRITIS, HYPERTENSION, PT IN A W/C, CHOLESTEROL, REFLUX, FALL RI SK, DIFFICULTY WALKING, EXAM MEASUREMENTS: Bone mineral densitometry was performed using the [employer] System. Bone mineral density as measured about the Lumbar spine is: ----- L1-L4(G/cm2): 1.561 T Score Values are as follows: ----- L1: 2.3 ----- L2: 3.1 ----- L3: 4.0 ----- L4: 3.1 ----- L1-L4: 3.2 Bone mineral density FIRST DEXA SCAN.......BASELINE STUDY Bone mineral density about the R hip (g/cm2): 0.843 Bone mineral density about the L hip (g/cm2): 0.901 T Score values are as follows: -----R Neck: -1.1 -----L Neck: -1.4 -----R Total: -1.3 -----L Total: -0.8 Bone mineral density BASELINE DEXA STUDY FRAX%s: THERE IS A 9.7% CHANCE FOR A MAJOR OSTEOPOROTIC FX AND A 2.5% FOR HIP.....PROBABILITY FOR FX IN 10 YRS TIME IMPRESSION: Osteopenia (T Score between -2.5 and -1). There is slightly increased risk of fracture and the patient may be considered for treatment. Re-Screen 2-5 years. NOTE: T-SCORE=SD OF THE YOUNG ADULT MEAN.
--- NOTE | 2018-10-30 14:33 | MR ---
EXAMINATION TYPE: MR brain wo/w con DATE OF EXAM: 10/30/2018 COMPARISON: NONE HISTORY: DIZZINESS and GIDDINESS TECHNIQUE: Multiplanar, multisequence images of the brain and brainstem is performed without and with IV contras t, utilizing 12.5 mL intravenous Gadavist . FINDINGS: Diffusion weighted images demonstrate no evidence of a recent infarct or other diffusion ab normality. There is no worrisome extra-axial fluid collection.. There is diffuse ventricular and sul yesenia prominence. No significant white matter changes are present. Midline structures demonstrate normal morphology. The craniocervical junction appears within normal limits. Post contrast images demonstrate no abnormal enhancement. The dural venous sinuses appear pa tent. The visualized sinuses are clear and the globes are intact. No suspicious fluid signal bilatera l mastoid air cells is present. IMPRESSION: Mild to moderate diffuse cerebral atrophy.
== END | disposition home or self-care (01) ==
LOC: RADUSMAIN 11:46
PROVIDERS: ATTEND Family Medicine
DX: G31.9 Degenerative disease of nervous system, unspecified (principal); M85.80 Other specified disorders of bone density and structure, unspecified site; I65.29 Occlusion and stenosis of unspecified carotid artery; I67.2 Cerebral atherosclerosis
CPT/HCPCS: 77080; 93880; 70553; A9585

== ENCOUNTER → 2019-02-08 | Outpatient (CLI) | payer MEDICARE, OTHER ==
--- NOTE | 2019-02-08 14:48 | MR ---
EXAMINATION TYPE: MR brain wo/w con DATE OF EXAM: 02/08/2019 COMPARISON: MRI brain October 30, 2018 HISTORY: Vertigo TECHNIQUE: Multiplanar, multisequence images of the brain and brainstem is performed without and with IV contras t, utilizing 12 mL intravenous Gadavist . FINDINGS: Diffusion weighted images demonstrate no evidence of a recent infarct or other diffusion ab normality. There is no extra-axial fluid collection . Occasional tiny focus of T2 hyperintensity sca ttered throughout the white matter, less than 5 lesions are present. Diffuse ventricular and sulcal p rominence remain present. Slight prominence of CSF high left frontal lobe measuring 1.9 cm axial imag e 26 and 2.5 cm long axis postcontrast coronal image 13, suspect small arachnoid cyst. Midline structures demonstrate normal morphology. The craniocervical junction appears within normal limits. Dominant left vertebral artery. Post contrast images demonstrate blush-type enhancement cent rally in the cerebellar hemispheres near the peduncles axial image 8 bilaterally uncertain etiology a s there is no new abnormal T1 or T2 signal at this level noted. Low T2 signal is symmetric but unchan ged from prior study The dural venous sinuses appear patent. The visualized sinuses are clear and the globes are intact. IMPRESSION: 1. Mild to borderline moderate generalized cerebral atrophy not significantly changed from prior. 2. There is small high left frontal 2.5 cm arachnoid cyst with local mass effect. This is in retrospe ct stable from prior. 3. Fairly symmetric blush type centrally in the bilateral cerebellum not clearly seen on prior study. Suspect venous anomaly given lack of altered T1 and T2 signal. Findings could be further investigate d with gradient imaging and/or short-term follow-up MRI in 2-3 months time.
== END | disposition home or self-care (01) ==
LOC: RADMRIMAIN 13:10
PROVIDERS: ATTEND Family Medicine
DX: G93.0 Cerebral cysts (principal)
CPT/HCPCS: 70553; A9585

== ENCOUNTER → 2019-10-29 | Outpatient (CLI) | payer MEDICARE, OTHER ==
--- NOTE | 2019-10-29 22:58 | MR ---
EXAMINATION TYPE: MR brain wo/w con DATE OF EXAM: 10/29/2019 COMPARISON: 02/08/2019 HISTORY: Arachnoid cyst, memory loss, unsteady CONTRAST: Performed utilizing 12.5 mL intravenous Gadavist gadolinium contrast. TECHNIQUE: Multiplanar, multiecho imaging on a 3.0 Maegan magnet is performed through the brain. Stud y is performed within 24 hours of arrival to the hospital. The craniovertebral junction is normal. The pituitary is normal. Diffusion-weighted imaging is performed. No abnormal hyperintensity is present to suggest an acute i ntracranial infarct or acute ischemic change. There are a few scattered periventricular white matter changes which are nonspecific but likely relat ed to chronic white matter ischemic changes. This was present previously. No abnormal enhancement is evident following contrast administration. Previous blush within the cerebellar peduncle region is no t evident on the current exam. Ventricles and sulci are appropriate for the patient age. There is an extra-axial collection followin g fluid pulse sequence measuring 2.9 x 2.3 cm in the left frontal extra-axial region. No abnormal enh ancement is evident. This was present previously and can be compatible with a stable arachnoid cyst. There is some minimal maxillary sinus mucosal thickening. Minimal mucosal thickening is within ethmoi d air cells. Remaining paranasal sinuses and mastoid air cells are clear. IMPRESSIONS: 1. Stable left frontal lobe arachnoid cyst. 2. Mild periventricular chronic appearing white matter ischemic changes. 3. No suspicious acute intracranial changes. Exam appears stable from most recent comparison.
== END | disposition home or self-care (01) ==
LOC: RADMRIMAIN 08:06
PROVIDERS: ATTEND Family Medicine
DX: G93.0 Cerebral cysts (principal); R90.89 Other abnormal findings on diagnostic imaging of central nervous system
CPT/HCPCS: 70553; A9585